=== PATIENT | male | born 1960 | race Hispanic/Latino ===

== ENCOUNTER → 2019-04-24 | Outpatient (CLI) | payer BC | END | disposition home or self-care (01) | LOC: SHCH 13:29 | PROVIDERS: ATTEND Internal Medicine Cardiovascular Disease | DX: R00.2 Palpitations (principal); I47.1 Supraventricular tachycardia; I10 Essential (primary) hypertension; E78.5 Hyperlipidemia, unspecified | CPT/HCPCS: 93306 ==

== ENCOUNTER → 2019-04-25 | Outpatient (CLI) | payer BC, OTHER | END | disposition home or self-care (01) | LOC: OIH 10:30 | PROVIDERS: ATTEND Internal Medicine Cardiovascular Disease | DX: Z13.6 Encounter for screening for cardiovascular disorders (principal) | CPT/HCPCS: 75571 ==

== ENCOUNTER → 2024-07-12 | Outpatient (CLI) | payer MEDICARE | END | disposition home or self-care (01) | LOC: RAH 12:46 | PROVIDERS: ATTEND Family Medicine | DX: N28.1 Cyst of kidney, acquired (principal); N32.89 Other specified disorders of bladder; R31.9 Hematuria, unspecified | CPT/HCPCS: 74176 ==